=== PATIENT | female | born 1990 | race Caucasian/White ===

== ENCOUNTER 2019-03-11 06:34 | Emergency (ER) | payer MEDICAID, OTHER ==
[~2019-03-11] VITALS: Ht 165.1 cm; Wt 94.6 kg
[2019-03-11 06:40] VITALS: RESP 16; Ht 165.1 cm; Wt 94.6 kg
[2019-03-11] MEDS ORDERED: CEPH-443 PO (08:58)
[2019-03-11 09:07] VITALS: BP 137/89; PULSE 67
--- NOTE | 2019-03-11 16:13 | ERD ---
ER Documentation Chief Complaint Chief Complaint VAG BLEED X 1 DAY , 6 WEEKS PREG , LMP 01/27/19 HPI History of Present Illness: 20-year-old female with history of hypertension coming in today with complaint of vaginal bleeding. Patient reports she is approximately 6 weeks , last menstrual period was 01/27/2019. Patient reports spotting yesterday, and throughout the night has noticed large clots. Patient reports that bleeding has decreased at this time. Patient denies any palpitations, shortness of breath, chest pain, weakness, dizziness, syncopal episodes. Denies genitourinary symptoms or severe abdominal pain. At home pharmacological/nonpharmacological treatment for symptoms: Denies Denies social concerns; Denies recent foreign travel ROS All systems reviewed and are negative except as per history of present illness. Medications Home Meds Active Scripts Cephalexin* (Keflex*) 500 Mg Capsule, 500 MG PO QID for urine infection for 7 Days, CAP Prov:LAURI ESCAMILLA V [employer]READ [employer]INNER 03/11/19 PMhx/Soc Medical and Surgical Hx: pt denies Surgical Hx Hx Cardiac Disorders: Yes (HTN) Hx Alcohol Use: Yes Hx Substance Use: No Hx Tobacco Use: No Smoking Status: Never smoker FmHx Family History: diabetes Physical Exam Vitals Vital Signs Date Temp Pulse Resp B/P (MAP) Pulse Ox O2 O2 Flow FiO2 Time Delivery Rate 03/11/19 67 137/89 09:07 (105) 03/11/19 98.4 71 16 138/74 99 06:40 (95) Physical Exam Const: No acute distress Head: Atraumatic Eyes: Normal Conjunctiva ENT: Normal External Ears, Nose and Mouth. Neck: Full range of motion. No meningismus. Resp: Clear to auscultation bilaterally Cardio: Regular rate and rhythm, no murmurs Abd: Soft, non tender, non distended. Normal bowel sounds Skin: No petechiae or rashes Back: No midline or flank tenderness Ext: No cyanosis, or edema Neur: Awake and alert Psych: Normal Mood and Affect Vaginal exam deferred, patient refused everything ultrasound results. No report of significant bleeding at this time. Result Diagram: 03/11/19 0725 Results 24 hrs Laboratory Tests Test 03/11/19 07:25 03/11/19 07:26 White Blood Count 7.1 10^3/ul Red Blood Count 5.08 10^6/ul Hemoglobin 14.8 g/dl Hematocrit 45.4 % Mean Corpuscular Volume 89.4 fl Mean Corpuscular Hemoglobin 29.1 pg Mean Corpuscular Hemoglobin Concent 32.6 g/dl Red Cell Distribution Width 13.7 % Platelet Count 409 10^3/UL Mean Platelet Volume 9.1 fl Immature Granulocytes % 0.400 % Neutrophils % 58.2 % Lymphocytes % 31.7 % Monocytes % 8.0 % Eosinophils % 0.7 % Basophils % 1.0 % Nucleated Red Blood Cells % 0.0 /100WBC Immature Granulocytes # 0.030 10^3/ul Neutrophils # 4.1 10^3/ul Lymphocytes # 2.3 10^3/ul Monocytes # 0.6 10^3/ul Eosinophils # 0.1 10^3/ul Basophils # 0.1 10^3/ul Nucleated Red Blood Cells # 0.0 10^3/ul Beta HCG, Quantitative 51.6 mIU/ml Urine Color RED Urine Clarity SLIGHTLY CLOUDY Urine pH 8.0 Urine Specific [place] 1.008 Urine Ketones NEGATIVE mg/dL Urine Nitrite NEGATIVE mg/dL Urine Bilirubin NEGATIVE mg/dL Urine Urobilinogen NEGATIVE mg/dL Urine Leukocyte Esterase NEGATIVE Pamela/ul Urine Microscopic RBC > 182 /HPF Urine Microscopic WBC 135 /HPF Urine Squamous Epithelial Cells MODERATE /HPF Urine Bacteria FEW /HPF Urine Hemoglobin 3+ mg/dL Urine Glucose NEGATIVE mg/dL Urine Total Protein 2+ mg/dl Procedures/MDM ED course includes a thorough examination and history. Medications: Imaging: OB pelvic and transvaginal ultrasound Labs: CBC, urinalysis, beta quantitative Low suspicion for life-threatening medical emergency. Low suspicion for severe hemorrhage. Low suspicion for gynecological/affect emergency requires hospitalization or immediate surgical intervention. Patient hemodynamically stable. Otherwise healthy patient presenting with constellation of symptoms likely representing miscarriage as characterized by history, physical exam findings, lab findings, imaging findings. CBC:no e/o of systemic infection or severe anemia. Urinalysis positive for bacteria, will treat for urinary tract infection. Positive serum beta quantitative. No respiratory distress, otherwise relatively well appearing and nontoxic. [employer], used for translation services. Patient verbalized understanding of instructions. Patient verbalizes understanding of return precautions for imaging. Patient educated on follow-up ultrasound and quantitative level IN 7 DAYS. Patient educated on diagnoses, prescriptions, follow-up care, return precautions. Strict return precautions given for worsening condition; questions answered discharge. Disposition for discharge with followup in 2 days with PCP/clinic. Departure Diagnosis: Primary Impression: Vaginal bleeding in patient at less than 20 weeks ges... Additional Impressions: Miscarriage, threatened, early Urinary tract bacterial infections Condition: Stable Patient Instructions: Understanding Urinary Tract Infections (UTIs), Miscarriage, Bleeding During Early Additional Instructions: Thank you very much for allowing us to participate in your care. Your health and safety is our top priority at [facility]. It is important to read all discharge instructions and education provided in your discharge packet. *You do have a urinary tract infection. There is no intrauterine sac noted at this time, to signify a . Is very important for you to follow-up within the next 7 days for reevaluation of blood work as well as ultrasound. This will help confirm if this has indeed been a miscarriage* Call your primary care doctor TOMORROW for an appointment during the next 2-4 days and bring all the information as well as prescriptions. Cephalexin as an antibiotic; take this medication every day every Q6 hours as listed on your prescription. You must complete the entire course of treatment that is listed on your prescription this is very important because it takes a certain number of days to kill the bacteria that is causing the infection. If the symptoms get worse and your provider is unavailable, return to the Emergency Department immediately. Return to emergency department for increased vaginal bleeding, dizziness, passing out, chest pain, shortness of breath. LAURI ESCAMILLA NP Mar 11, 2019 16:13
== END 2019-03-11 09:08 | disposition home or self-care (01) ==
LOC: FTE 06:34
DX: O03.9 Complete or unspecified spontaneous abortion without complication (principal); O23.41 Unspecified infection of urinary tract in pregnancy, first trimester; O10.011 Pre-existing essential hypertension complicating pregnancy, first trimester
CPT/HCPCS: 36415; 76801; 76817; 81001; 84702; 85025; 86900; 86901; Z7502

== ENCOUNTER 2019-03-30 19:01 | Emergency (ER) | payer MEDICAID ==
[~2019-03-30] VITALS: Wt 94.5 kg
[~2019-03-30 19:01] MED LIST: CEPH-443 PO
[2019-03-30] MEDS ORDERED: ACETAMINOPHEN 500 MG TAB PO STA (20:32)
--- NOTE | 2019-03-30 20:32 | ERD ---
ER Documentation Chief Complaint Chief Complaint VAG BLEED, 6 WEEKS PG HPI This is a 28-year-old female who presents here to the emergency department with complaints of pelvic pain, vaginal bleeding for about a day. She was sent here by her primary care physician, with written instructions to rule out ectopic , to do blood works. Records from [facility] laboratory indicates that on 03/13/2019, her beta-hCG quantitative was 40; her beta hCG quantitative on 03/27/2019 was 54. LMP: 01/26/2018. TRISH: 11/03/2019. G3, . Denies headache, head injury, loss of consciousness, dizziness, neck pain, neck stiffness, throat pain, difficulty swallowing, difficulty breathing lying flat, shoulder pain, chest pain, back pain, abdominal pain, nausea, vomiting, constipation, diarrhea, urinary symptoms, loss of bowel and bladder control, trauma, injury, falls, difficulty walking due to pain, numbness or tingling sensation, calf pain, recent travel, recent major surgery in the last 3 weeks, calf pain, recent long travel, recent exposure to any illness, recent antibiotic use in the last 3 months, fever, chills, seizures. Past medical history: On records sent by her primary showed that she has history of HPV in 06/27/2016. Family history: Father has diabetes and hypertension. Surgical history: Social: Denies smoking, use of alcoholic beverages, use of illegal drugs. ROS All systems reviewed and are negative except as per history of present illness. Medications Home Meds Active Scripts Vit No.124/Iron/FA ( Vitamin Tablet) 1 Each Tablet, 1 EACH PO DAILY, #30 TAB Prov:PASILABAN,KLAR F 03/30/19 Acetaminophen* (Tylophen*) 500 Mg Capsule, 1 CAP PO Q6H PRN for PAIN AND OR ELEVATED TEMP, #20 CAP Prov:PASILABAN,KLAR F 03/30/19 Cephalexin* (Keflex*) 500 Mg Capsule, 500 MG PO QID for urine infection for 7 Days, CAP Prov:LAURI ESCAMILLA NP 03/11/19 Allergies Allergies: Coded Allergies: No Known Allergy (Unverified , 03/30/19) PMhx/Soc Hx Cardiac Disorders: Yes (HTN) Hx Alcohol Use: Yes Hx Substance Use: No Hx Tobacco Use: No Smoking Status: Never smoker Physical Exam Vitals Vital Signs Date Temp Pulse Resp B/P (MAP) Pulse Ox O2 O2 Flow FiO2 Time Delivery Rate 03/30/19 99.1 81 18 170/90 99 Room Air 23:03 (116) 03/30/19 98.0 89 18 157/88 100 19:29 (111) Physical Exam Const: No acute distress Head: Atraumatic Eyes: Normal Conjunctiva ENT: Normal External Ears, Nose and Mouth. Neck: Full range of motion. No meningismus. Resp: Clear to auscultation bilaterally Cardio: Regular rate and rhythm, no murmurs Abd: Soft, non tender, non distended. Normal bowel sounds. Negative Fong sign. Negative Kingsley sign (heel jar test). Negative psoas sign. No CVA tenderness. Skin: No petechiae or rashes. Color appears normal for ethnicity. No skin tenting. No clammy skin. No signs of severe dehydration. Back: No midline or flank tenderness Ext: No cyanosis, or edema Neur: Awake and alert. No neurological deficits. Psych: Normal Mood and Affect Result Diagram: 03/30/19205003/30/192050 Results 24 hrs Laboratory Tests Test 03/30/19 20:50 03/30/19 20:51 03/30/19 20:58 POC Beta HCG, Qualitative POSITIVE POSITIVE White Blood Count 9.7 10^3/ul Red Blood Count 4.87 10^6/ul Hemoglobin 14.3 g/dl Hematocrit 43.1 % Mean Corpuscular Volume 88.5 fl Mean Corpuscular Hemoglobin 29.4 pg Mean Corpuscular 33.2 g/dl Hemoglobin Concent Red Cell Distribution Width 13.5 % Platelet Count 426 10^3/UL Mean Platelet Volume 9.1 fl Immature Granulocytes % 0.500 % Neutrophils % 52.7 % Lymphocytes % 34.6 % Monocytes % 10.6 % Eosinophils % 1.0 % Basophils % 0.6 % Nucleated Red Blood Cells % 0.0 /100WBC Immature Granulocytes # 0.050 10^3/ul Neutrophils # 5.1 10^3/ul Lymphocytes # 3.4 10^3/ul Monocytes # 1.0 10^3/ul Eosinophils # 0.1 10^3/ul Basophils # 0.1 10^3/ul Nucleated Red Blood Cells # 0.0 10^3/ul Urine Color YELLOW Urine Clarity SLIGHTLY CLOUDY Urine pH 6.0 Urine Specific [place] 1.019 Urine Ketones TRACE mg/dL Urine Nitrite NEGATIVE mg/dL Urine Bilirubin NEGATIVE mg/dL Urine Urobilinogen NEGATIVE mg/dL Urine Leukocyte Esterase NEGATIVE Pamela/ul Urine Microscopic RBC 0 /HPF Urine Microscopic WBC 1 /HPF Urine Squamous Epithelial Cells MODERATE /HPF Urine Bacteria FEW /HPF Urine Hemoglobin 2+ mg/dL Urine Glucose NEGATIVE mg/dL Urine Total Protein NEGATIVE mg/dl Sodium Level 145 mmol/L Potassium Level 3.5 mmol/L Chloride Level 108 mmol/L Carbon Dioxide Level 27 mmol/L Anion Gap 10 Blood Urea Nitrogen 14 mg/dl Creatinine 0.72 mg/dl Est Glomerular Filtrat > 60 mL/min Rate mL/min Glucose Level 91 mg/dl Calcium Level 9.8 mg/dl Total Bilirubin 0.7 mg/dl Direct Bilirubin 0.00 mg/dl Indirect Bilirubin 0.7 mg/dl Aspartate Amino Transf (AST/SGOT) 27 IU/L Alanine 31 IU/L Aminotransferase (ALT/SGPT) Alkaline Phosphatase 72 IU/L Total Protein 7.6 g/dl Albumin 4.6 g/dl Globulin 3.00 g/dl Albumin/Globulin Ratio 1.53 Amylase Level 112 U/L Lipase 206 U/L Beta HCG, Quantitative 38.9 mIU/ml Current Medications Medications Dose Sig/Endy Start Time Status Last (Trade) Ordered Route PRN Stop Time Admin Dose Reason Admin 500 mg ONCE STAT 03/30/19 DC 03/30/19 Acetaminophen PO 20:32 20:55 (Tylenol 03/30/19 20:35 Tab) Procedures/MDM Diagnostic tests: Urinalysis: Reviewed. Culture urine: Sent. Beta hCG quantitative: 39. Type and Rh: O+. Blood works: Reviewed. OB ultrasound: No intrauterine gestation visualized. Differential diagnosis includes early , missed or ectopic . Follow-up ultrasound and hCG levels is recommended. Treatment: Tylenol p.o. Re-evaluation: Denies chest pain, back pain, abdominal pain, pelvic pain, vaginal bleeding. No CVA tenderness. No signs of hemorrhaging. Ambulatory with steady gait. Stated that she feels comfortable going home. Differential diagnosis I have low suspicion for sepsis, hemorrhaging, pyelonephritis, ectopic . Beta hCG quantitative is decreasing in trend. This case was discussed with my supervising physician, Dr. Gómez Mcnamara who agreed with my medical decision making. Final diagnosis: Pelvic pain/vaginal bleeding during . Prescription: Tylenol. vitamins. Follow-up with PCP in the next 24-48 hours. Follow-up with OB in the next 24 to 48 hours to recheck hCG levels and do a follow-up ultrasound. Come back here in the emergency department for any new symptoms or any worsening symptoms. All questions and concerns were answered. Patient and family members verbalized understanding and agreed with plan of care. Hemodynamically stable on discharge. Departure Diagnosis: Primary Impression: Miscarriage, threatened, early Condition: Stable Additional Instructions: Follow-up with PCP in the next 24-48 hours. Follow-up with OB in the next 24 to 48 hours to recheck hCG levels and do a follow-up ultrasound. Come back here in the emergency department for any new symptoms or any worsening symptoms. DEVON JOVEL March 30, 2019 20:32
[2019-03-30] MEDS ORDERED: PREN-93 PO (22:47)
[2019-03-30] MEDS ORDERED: ACET500C5 PO (22:47)
[2019-03-30 23:03] VITALS: BP 170/90; PULSE 81; RESP 18
== END 2019-03-30 23:03 | disposition home or self-care (01) ==
LOC: FTE 19:01
DX: O20.0 Threatened abortion (principal); O10.011 Pre-existing essential hypertension complicating pregnancy, first trimester; R10.2 Pelvic and perineal pain; Z3A.01 Less than 8 weeks gestation of pregnancy
CPT/HCPCS: 76801; 80053; 81001; 81025; 82150; 83690; 84702; 85025; 86900; 86901; 87086; Z7502; Z7610